=== PATIENT | female | born 1975 | race Caucasian/White ===

== ENCOUNTER 2020-02-01 07:16 | Outpatient (CLI) | payer BC, SELFPAY ==
--- NOTE | 2020-02-01 07:24 | MM_ITS ---
WS: [id number] SCREENING DIGITAL MAMMOGRAM WITH CAD HISTORY: SCREENING COMPARISON: 01/24/2017 Bilateral CC and MLO views submitted. Computer aided detection analyzed. Breast composition: There are scattered areas of fibroglandular density. No suspicious masses, microc alcifications or architectural distortion. MM/[place] [id number] IMPRESSION: BI-RADS: 1-Negative FOLLOW UP: 1 Year Follow-up
== END 2020-02-01 07:17 | disposition home or self-care (01) ==
LOC: RADSHAW 07:22
PROVIDERS: Family Provider Nurse Practitioner Family; PCP Nurse Practitioner Family; Visit Provider Nurse Practitioner Family
DX: Z12.31 Encounter for screening mammogram for malignant neoplasm of breast (principal)
CPT/HCPCS: 77067

== ENCOUNTER 2020-03-03 13:02 | Outpatient (CLI) | payer BC, SELFPAY ==
--- NOTE | 2020-03-03 13:12 | XR_ITS ---
WS: [id number] LUMBAR SPINE TECHNIQUE: 3 views of the lumbar spine CLINICAL INFORMATION: LUMBAR SPINE PAIN COMPARISON: None. FINDINGS: Five ugw-lwi-[id number] lumbar vertebral bodies. Mild lumbar curve convex left. Disc space heights and v ertebral body heights are well preserved. Minimal retrolisthesis L2 on L3 and L3 on L4. Disc space na rrowing worse at L3-4. Mild facet arthropathy L5-S1. No acute appearing compression fractures. Normal partially visualized pelvic bony structures. XR/XR lumbar spine 2-3V* [id number] IMPRESSION: 1. Mild lumbar curve convex left. 2. Slight retrolisthesis L2 on L3 and L3 on L4 with disc space narrowing worse at L3-4. 3. Mild facet arthropathy L5-S1.
--- NOTE | 2020-03-03 13:12 | XR_ITS ---
WS: [id number] CERVICAL SPINE TECHNIQUE: 3 views of the cervical spine CLINICAL INFORMATION: CERVICAL PAIN COMPARISON: None. FINDINGS: Straightening of the normal cervical lordosis. Mild spondylitic changes. Disc space narrowing worse a t C5-6. Slight retrolisthesis C5 on C6. Normal prevertebral soft tissues. Normal C1-2 articulation. M ild facet arthropathy. XR/XR cervical spine 3V* [id number] IMPRESSION: 1. Straightening of the normal cervical lordosis with mild spondylitic changes . 2. Disc space narrowing worse at C5-6 with anterior hypertrophic changes.
== END 2020-03-03 13:03 | disposition home or self-care (01) ==
LOC: RADWPI 13:07
PROVIDERS: Family Provider Nurse Practitioner Family; PCP Nurse Practitioner Family; Visit Provider Nurse Practitioner Family
DX: M54.5 Low back pain (principal); M54.2 Cervicalgia; M48.061 Spinal stenosis, lumbar region without neurogenic claudication; M47.817 Spondylosis without myelopathy or radiculopathy, lumbosacral region; M48.02 Spinal stenosis, cervical region
CPT/HCPCS: 72040; 72100

== ENCOUNTER 2020-03-10 15:22 | Outpatient (CLI) | payer BC, SELFPAY ==
--- NOTE | 2020-03-10 15:26 | USCV_ITS ---
Fatuma Jenkins Age: 44 Gender: F : 1975 Exam Date: 03/10/2020 15:44 Ordering Phys: Tiffanie Caba INTERVENTION SPECIALIST INTERVENTION SPECIALIST Technologist: Kmy Mcdaniel [place] [facility] [place]ication: DISCOLORATION OF SKIN OF TOE. HEEL PAIN. HISTORY: Heel pain. PROCEDURES: Examined bilaterally were the greater saphenous, common femoral, femoral, profunda, popliteal, posterior tibial veins, and peroneal trunk. FINDINGS: Normal 2-D Doppler and augmentation and compressibility throughout the lower extremity venous structures. Additional imaging through the proximal calf veins also reveals no thrombus. Limited evaluation of the greater saphenous vein is patent with no thrombus. CONCLUSIONS No DVT bilateral lower extremities. Dr. Pam Rees DO (Electronically Signed) Final Date: 10 March 2020 16:03 S
== END 2020-03-10 15:23 | disposition home or self-care (01) ==
LOC: RADWPI 15:24
PROVIDERS: Family Provider Nurse Practitioner Family; PCP Nurse Practitioner Family; Visit Provider Nurse Practitioner Family
DX: L81.9 Disorder of pigmentation, unspecified (principal); M79.671 Pain in right foot
CPT/HCPCS: 93970

== ENCOUNTER 2020-03-15 09:52 | Outpatient (RCR) | payer BC, SELFPAY | END 2020-03-31 23:59 | disposition home or self-care (01) | LOC: SPT 09:52 | PROVIDERS: Family Provider Nurse Practitioner Family; PCP Nurse Practitioner Family; Referring Provider Nurse Practitioner Family; Visit Provider Nurse Practitioner Family | DX: M54.2 Cervicalgia (principal); M54.5 Low back pain | CPT/HCPCS: 97110; 97162 ==

== ENCOUNTER 2020-03-24 14:20 | Outpatient (CLI) | payer BC, SELFPAY ==
--- NOTE | 2020-03-24 14:27 | USCV_ITS ---
Fatuma Jenkins Age: 44 Gender: F : 1975 Exam Date: 03/24/2020 14:20 Ordering Phys: Tiffanie Caba HAND DECORATOR HAND DECORATOR Technologist: Exam Location[place] [facility] [place] Indication: FEET OFTEN TURN PURPLE RIGHT LEFT Brachial 115.00 mmHg Brachial 113.00 mmHg Pressure (mmHg) Waveform Pressure (mmHg) Waveform 127.00 EXCEL SPECIALIST 131.00 118.00 DPA 130.00 1.03 Ankle/Brachial Index 1.14 0.87 Pre-Exercise Toe Pressure 0.76 FINDINGS Normal resting ABIs bilaterally ,1.03 and 1.14 Normal resting TBIs bilaterally, 0.87 and 0.76 CONCLUSIONS No significant arterial obstruction, based on above findings Dr Leonel Cotto MD FAC (Electronically Signed) Final Date: 24 March 2020 18:08 S
== END 2020-03-24 14:21 | disposition home or self-care (01) ==
LOC: RAD 14:23
PROVIDERS: Family Provider Nurse Practitioner Family; PCP Nurse Practitioner Family; Visit Provider Nurse Practitioner Family
DX: L81.9 Disorder of pigmentation, unspecified (principal)
CPT/HCPCS: 93922

== ENCOUNTER 2020-04-01 06:00 | Outpatient (RCR) | payer BC, SELFPAY | END 2020-04-14 23:00 | disposition home or self-care (01) | LOC: SPT 06:00 | PROVIDERS: PCP Nurse Practitioner Family; Referring Provider Nurse Practitioner Family; Visit Provider Nurse Practitioner Family | DX: M54.2 Cervicalgia (principal); M54.5 Low back pain | CPT/HCPCS: 97110 ==

== ENCOUNTER 2020-04-07 09:26 | Outpatient (CLI) | payer BC, SELFPAY ==
--- NOTE | 2020-04-07 09:32 | XR_ITS ---
WS: [id number] XR foot LT min 3V* [id number] REASON FOR EXAM: BILATERAL FOOT PAIN FINDINGS: Small calcaneal spur is seen. The remaining phalanges metatarsals and tarsals are all appear to be essentially normal. No fractures or other dyscrasias. XR/XR foot LT min 3V* [id number] IMPRESSION: Calcaneal spur.
--- NOTE | 2020-04-07 09:33 | XR_ITS ---
WS: [id number] XR foot RT min 3V* [id number] REASON FOR EXAM: BILATERAL FOOT PAIN FINDINGS: Right foot 3 views show a calcaneal spur evident. The phalanges, metatarsals, tarsals are normal. The remaining calcaneus was normal. XR/XR foot RT min 3V* [id number] IMPRESSION: Calcaneal spur.
== END 2020-04-07 09:27 | disposition home or self-care (01) ==
LOC: RAD 09:29
PROVIDERS: PCP Nurse Practitioner Family; Visit Provider Nurse Practitioner Family
DX: M77.31 Calcaneal spur, right foot; M77.32 Calcaneal spur, left foot
CPT/HCPCS: 73630

== ENCOUNTER → 2020-06-14 10:49 | Outpatient (BNVA) | payer BC, SELFPAY | PROVIDERS: PCP Nurse Practitioner Family; Visit Provider Obstetrics & Gynecology | DX: R87.610 Atypical squamous cells of undetermined significance on cytologic smear of cervix (ASC-US) (principal); R87.810 Cervical high risk human papillomavirus (HPV) DNA test positive | CPT/HCPCS: 88305 ==

== ENCOUNTER 2021-02-09 11:04 | Outpatient (CLI) | payer BC, SELFPAY ==
--- NOTE | 2021-02-09 11:16 | MM_ITS ---
WS: [id number] BILATERAL DIGITAL SCREENING MAMMOGRAPHY WITH CAD CLINICAL INFORMATION: SCREENING HISTORY: Screening mammogram. No current complaints. COMPARISON: February 01, 2020 TECHNIQUE: Bilateral CC and MLO views. FINDINGS: Scattered fibroglandular densities bilaterally. No suspicious focal mass, asymmetry, calcifications, or architectural distortion. No evidence of malignancy. MM/[place] [id number] IMPRESSION: BI-RADS: 1-Negative FOLLOW UP: 1 Year Follow-up Recommend return to annual screening mammography.
== END 2021-02-09 11:05 | disposition home or self-care (01) ==
LOC: RADSHAW 11:08
PROVIDERS: PCP Nurse Practitioner Family; Visit Provider Nurse Practitioner Family
DX: Z12.31 Encounter for screening mammogram for malignant neoplasm of breast (principal)
CPT/HCPCS: 77067

== ENCOUNTER → 2021-03-01 17:56 | Outpatient (BNVA) | payer BC, SELFPAY | PROVIDERS: PCP Nurse Practitioner Family; Visit Provider Nurse Practitioner | DX: M54.9 Dorsalgia, unspecified (principal); N39.0 Urinary tract infection, site not specified | CPT/HCPCS: 81000; 87086 ==

== ENCOUNTER → 2021-03-29 18:33 | Outpatient (BNVA) | payer BC, SELFPAY | PROVIDERS: PCP Nurse Practitioner Family; Visit Provider Nurse Practitioner | DX: J02.9 Acute pharyngitis, unspecified (principal); J01.90 Acute sinusitis, unspecified; B96.89 Other specified bacterial agents as the cause of diseases classified elsewhere | CPT/HCPCS: 87071; 87880 ==

== ENCOUNTER → 2021-06-07 14:46 | Outpatient (BNVA) | payer BC, SELFPAY | PROVIDERS: PCP Nurse Practitioner Family; Visit Provider Obstetrics & Gynecology | DX: R87.610 Atypical squamous cells of undetermined significance on cytologic smear of cervix (ASC-US) (principal); R87.810 Cervical high risk human papillomavirus (HPV) DNA test positive | CPT/HCPCS: 88175 ==

== ENCOUNTER → 2022-01-15 17:00 | Outpatient (BNVA) | payer BC, SELFPAY | PROVIDERS: PCP Nurse Practitioner Family; Visit Provider Nurse Practitioner | DX: N39.0 Urinary tract infection, site not specified (principal) | CPT/HCPCS: 81000 ==

== ENCOUNTER → 2022-09-15 15:21 | Outpatient (BNVA) | payer BC, SELFPAY | PROVIDERS: PCP Nurse Practitioner Family; Visit Provider Emergency Medicine | DX: N30.01 Acute cystitis with hematuria (principal) | CPT/HCPCS: 81000 ==

== ENCOUNTER → 2022-09-25 09:55 | Outpatient (BNVA) | payer BC, SELFPAY | PROVIDERS: PCP Nurse Practitioner Family; Visit Provider Family Medicine | DX: Z13.6 Encounter for screening for cardiovascular disorders (principal); K21.9 Gastro-esophageal reflux disease without esophagitis; Z01.419 Encounter for gynecological examination (general) (routine) without abnormal findings; Z12.31 Encounter for screening mammogram for malignant neoplasm of breast; Z87.440 Personal history of urinary (tract) infections | CPT/HCPCS: 80053; 80061; 81000; 84443; 85025; 87086; 87106; 87624 ==

== ENCOUNTER 2022-10-18 14:42 | Emergency (ER) | payer BC, SELFPAY ==
[2022-10-18 15:07] VITALS: BMI 26.6
[2022-10-18 15:15] VITALS: BP 118/78; PULSE 74; RESP 18; TEMP 36.6; O2SAT 98
--- NOTE | 2022-10-18 16:27 | CTR_ITS ---
PROCEDURE INFORMATION: Exam: CT Head Without Contrast Exam date and time: 10/18/2022 4:45 PM Age: 47 years old Clinical indication: Injury or trauma; Fall; Abrasion and blunt trauma (contusions or hematomas); Face and forehead; Additional info: Headache post fall/syncope TECHNIQUE: Imaging protocol: Computed tomography of the head without contrast. Sagittal and coronal reformatted images were created and reviewed. Radiation optimization: All CT scans at this facility use at least one of these dose optimization techniques: automated exposure control; mA and/or kV adjustment per patient size (includes targeted exams where dose is matched to clinical indication); or iterative reconstruction. COMPARISON: CR XR cervical spine 3V* [id number] 03/03/2020 1:21 PM RADIATION DOSE METRICS: Total DLP (mGy-cm): 1019.48 FINDINGS: Brain: No acute intracranial hemorrhage. No acute infarct. No intra-axial or extra-axial masses. Ding-white matter differentiation is preserved. No cerebral edema. No extra-axial fluid collections. No midline shift. No evidence for Chiari 1 malformation. Cerebral ventricles: No hydrocephalus. Paranasal sinuses: Visualized paranasal sinuses are clear. Mastoid air cells: Mastoid air cells are clear bilaterally. Orbital cavities: Globes and lenses, extraocular muscles, and optic nerves are intact bilaterally. No acute intraorbital abnormality. Nasal cavity: Mild left nasal septal deviation. Bones/joints: No acute fracture. Soft tissues: No acute abnormality of the extracranial soft tissues. CT/CT head wo con* [id number] IMPRESSION: 1. No acute abnormality of the brain. 2. Incidental/nonacute findings are listed in the report.
--- NOTE | 2022-10-18 16:47 | ED_ITS ---
Documented by User: WALLY Mendoza 10/18/22 23:55 HPI - Head Injury General: Chief complaint: Head Injury Stated complaint: Fall, head injury Time Seen by Provider: 10/18/22 15:27 History of Present Illness: Patient reports that she has a history of passing out. She reports that she has had this longstanding and will typically pass out and usually knows when she is going to do that. She reports that yesterday she was going to the bathroom and felt it coming on. She leaned forward to get cool water from the sink and the next thing she knew she was waking up on the ground. She reports that she did hit her head and bit her tongue. She reports that she had a knot on her head. She reports that she was very nauseated and vomiting last night. Ports that she was extremely dizzy and tired so she took a melatonin and tried to sleep it off. She reports that because she had the goose egg her sister demanded that she come to the ER to the. She reports that she has not had any vomiting or dizziness today. She does report that she has some swelling to the right side of her forehead and right side of her face. She rates her head pain is 6 on a 0-to-10 scale she has not taken anything for this. Associated symptoms: Deny nausea or vomiting Review of Systems Const: Denies: fever(s) or chills Eyes: Denies: change in vision, blurry vision, blind spots or photophobia Card: Denies: chest pain or palpitations Resp: Denies: dyspnea, productive cough or non-productive cough GI: Denies: abdominal pain, nausea or vomiting Neuro: Reports: headache(s); Denies: numbness in extremities, weakness in extremities, sensory changes, lack of coordination, difficulty walking or dizziness PFSH ED PFSH: Medical History Chronic neck pain Reports that she has a bulging disc in her neck that causes pain which is why she takes medication as needed. This is managed by her primary care provider GERD (gastroesophageal reflux disease) Controlled with medication-denies having had an endoscopy in the past. No pertinent past medical history Denies diabetes, asthma, hypertension, seizures, DVT/PE. PCP: [facility] Surgical History S/P dilation and curettage Performed by Dr. Norton in 1993 after a miscarriage S/P dilation of urethra Performed in [place] at age 4 S/P endometrial ablation 2007, performed by Dr. Norton Family History Grandfather Skin cancer maternal Heart disease paternal, of same Family/Other Diabetes maternal aunt, paternal aunt Stroke paternal aunt Colon cancer maternal uncle, diagnosed at age 60 Paternal cousin, diagnosed at age 40 Rectal cancer cousin, diagnosed in her late 30s Grandmother Diabetes maternal Heart disease paternal Family/Other Ovarian cancer maternal aunt, diagnosed in her late 50s, mets to uterus Father Hypertension Hyperlipidemia Denies family history of Breast cancer Uterine cancer Thyroid condition Social History Smoking and tobacco status: current every day smoker Alcohol intake: never Physical Exam Const: COMMON NORMALS: no acute distress, patient oriented x3 and alert Eye: COMMON NORMALS: Equal, round and reactive pupils present, EOMs intact bilaterally, conjunctivae normal, no scleral icterus and no papilledema CONJUNCTIVA: Yes conjunctivae normal PUPIL: Yes Equal, round and reactive pupils present DIRECT OPHTHALMOSCOPY: Yes no papilledema Neuro: COMMON NORMALS: patient oriented x3, CN's II-XII intact bilaterally, moves all extremities, no focal motor deficits and no sensory deficits noted SENSORIUM/ORIENTATION: Yes alert Course Vital Signs: Vital signs: Vital Signs Temperature 97.9 F 10/18/22 15:15 Pulse Rate 74 10/18/22 15:15 Respiratory Rate 18 10/18/22 15:15 Blood Pressure 118/78 10/18/22 15:15 Pulse Oximetry 98 10/18/22 15:15 Oxygen Delivery Me thod 10/18/22 15:15 MDM - Head Injury Medcial Decision Making Patient is in today after syncopal episode and hitting her head last night. She was having vomiting last night and has not today however she is very concerned because of a goose egg on her head and swelling on the right side of her face. Cranial nerves II through XII grossly intact on exam. We discussed head CT and the risk of radiation. I did talk with patient and her sister, at length. I advised that after head injury if patient is having nausea and vomiting she should come in right away. At this point, her symptoms are residing, I have less concern for an intracranial process. Patient and sister are insistent on a head CT at this time. Head CT does not show any acute abnormality of the brain. Discussed conservative management for concussion. Educated patient about brain rest technique for 72 hours. Advised patient of red flags for worsening symptoms and when she should return to the ER should she notice any. Follow-up with primary care provider as needed. Return to the ER for any new or worsening symptoms. Lab Data Radiology Impressions Head CT 10/18/22 16:27 IMPRESSION: 1. No acute abnormality of the brain. 2. Incidental/nonacute findings are listed in the report. Discharge Plan Discharge Patient Disposition: Home Clinical Impression: Closed head injury, Concussion with loss of consciousness Condition: Stable Prescriptions: No Action pantoprazole [Protonix] 40 mg tablet,delayed release (DR/EC) 40 mg PO DAILY Qty: 30 0RF fluconazole [Diflucan] 150 mg tablet 150 mg PO Q3D Qty: 2 0RF Rx Instructions: may repeat second dose 72 hrs after first dose. Discharge Orders: Discharge ED (Routine); Ordered 10/18/22 Ordered By: Cinthya Caba Referrals: Antoinette Barron DO [Primary Care Provider] - Discharge Diet: Usual diet Discharge Activity: Resume usual activity Patient Instructions: Concussion/Head Injury - Adult Activity Restrictions/Additional Instructions: I recommend brain rest for the next 72 hours. Brain rest involves no screen time, no fluorescent lighting, little interaction. Rest in bed in dark room except for getting up to eat or go to the bathroom. Use Tylenol Motrin as needed to help with headache. Follow-up with primary care provider as needed and to continue to monitor chronic episodes of syncope/passing out. Return to the ER for any new or worsening symptoms. Stand Alone Forms: Work/School Release Coding Level of Care Code ED Grain Cleaner And Transfer Operator for Chg Fwd Exam Expanded Problem Focused Documented by User: Aden Sumner DO 10/19/22 11:45 HPI - Head Injury General: Chief complaint: Head Injury Stated complaint: Fall, head injury Time Seen by Provider: 10/18/22 15:27 PFSH ED PFSH: Medical History Chronic neck pain Reports that she has a bulging disc in her neck that causes pain which is why she takes medication as needed. This is managed by her primary care provider GERD (gastroesophageal reflux disease) Controlled with medication-denies having had an endoscopy in the past. No pertinent past medical history Denies diabetes, asthma, hypertension, seizures, DVT/PE. PCP: [facility] Surgical History S/P dilation and curettage Performed by Dr. Norton in 1993 after a miscarriage S/P dilation of urethra Performed in [place] at age 4 S/P endometrial ablation 2007, performed by Dr. Norton Family History Grandfather Skin cancer maternal Heart disease paternal, of same Family/Other Diabetes maternal aunt, paternal aunt Stroke paternal aunt Colon cancer maternal uncle, diagnosed at age 60 Paternal cousin, diagnosed at age 40 Rectal cancer cousin, diagnosed in her late 30s Grandmother Diabetes maternal Heart disease paternal Family/Other Ovarian cancer maternal aunt, diagnosed in her late 50s, mets to uterus Father Hypertension Hyperlipidemia Denies family history of Breast cancer Uterine cancer Thyroid condition Social History Smoking and tobacco status: current every day smoker Alcohol intake: never Course Vital Signs: Vital signs: Vital Signs Temperature 97.9 F 10/18/22 15:15 Pulse Rate 74 10/18/22 15:15 Respiratory Rate 18 10/18/22 15:15 Blood Pressure 118/78 10/18/22 15:15 Pulse Oximetry 98 10/18/22 15:15 Oxygen Delivery Me thod 10/18/22 15:15 MDM - Head Injury Medcial Decision Making Patient is in today after syncopal episode and hitting her head last night. She was having vomiting last night and has not today however she is very concerned because of a goose egg on her head and swelling on the right side of her face. Cranial nerves II through XII grossly intact on exam. We discussed head CT and the risk of radiation. I did talk with patient and her sister, at length. I advised that after head injury if patient is having nausea and vomiting she should come in right away. At this point, her symptoms are residing, I have les s concern for an intracranial process. Patient and sister are insistent on a head CT at this time. Head CT does not show any acute abnormality of the brain. Discussed conservative management for concussion. Educated patient about brain rest technique for 72 hours. Advised patient of red flags for worsening symptoms and when she should return to the ER should she notice any. Follow-up with primary care provider as needed. Return to the ER for any new or worsening symptoms. Chart reviewed and patient discussed with midlevel. Agree with assessment and plan. Lab Data Radiology Impressions Head CT 10/18/22 16:27
[2022-10-18] MEDS: acetaminophen 500 mg Tablet 1000 MG PO (16:55)
== END 2022-10-18 17:50 | disposition home or self-care (01) ==
PROVIDERS: Emergency Provider Nurse Practitioner Family; PCP Family Medicine
DX: S09.8XXA Other specified injuries of head, initial encounter (principal); S06.0X9A Concussion with loss of consciousness of unspecified duration, initial encounter; F17.210 Nicotine dependence, cigarettes, uncomplicated; W18.39XA Other fall on same level, initial encounter
CPT/HCPCS: 70450; 99284

== ENCOUNTER 2022-10-24 09:37 | Outpatient (CLI) | payer BC, SELFPAY ==
--- NOTE | 2022-10-24 09:50 | MM_ITS ---
WS: [id number] BILATERAL SCREENING DIGITAL TOMOSYNTHESIS MAMMOGRAM WITH CAD HISTORY: screening mammogram COMPARISON: 02/09/2021, 02/01/2020 Bilateral CC and MLO views with tomosynthesis and synthetic mammography submitted. Computer aided det ection analyzed. Breast composition: There are scattered areas of fibroglandular density. No suspicious masses, microc alcifications or architectural distortion. MM/[place] [id number] IMPRESSION: BI-RADS: 1-Negative FOLLOW UP: 1 Year Follow-up
== END 2022-10-24 09:38 | disposition home or self-care (01) ==
LOC: RAD 09:38
PROVIDERS: PCP Family Medicine; Visit Provider Family Medicine
DX: Z12.31 Encounter for screening mammogram for malignant neoplasm of breast (principal)
CPT/HCPCS: 77063; 77067

== ENCOUNTER 2022-12-14 10:16 | Day surgery (SDC) | payer BC, SELFPAY ==
[2022-12-11 15:08] VITALS: BMI 26.2
[2022-12-14 10:30] VITALS: BP 141/87; PULSE 82; RESP 18; TEMP 36.3; O2SAT 100
[2022-12-14] MEDS: sodium chloride 0.9% 1,000 ML 30 ML IV (10:40)
--- NOTE | 2022-12-14 10:51 | ANES.PREANE2 ---
Pre-Anesthetic Assessment Height/Weight: Height 1.57 m Weight 64.864 kg Temp Pulse Resp BP Pulse Ox O2 Del Method 97.4 F L 82 18 141/87 100 12/14/22 10:30 12/14/22 10:30 12/14/22 10:30 12/14/22 10:30 12/14/22 10:30 12/14/22 10:30 Operation Date: 12/14/22 11:15 Proposed Procedures p EGD [id number],K21.9(Not Applicable) - Rudy Fuentes DO Familial anesthetic complications: None Was Beta Fili taken within 24 hours: N/A Was Clonidine taken within 24 hours: N/A Last intake: Intake Last Liquid Date 12/13/22 Last Liquid Time 22:00 Last Solid Date 12/13/22 Social No alcohol and No tobacco Exam alert, oriented x 3, clear to auscultation bilaterally and regular rate & rhythm Airway Submandibular: within normal limits Cervical ROM: Other (Decreased ROM) Mallampati: Class II Dentition: full History/ROS No significant history except as noted and No significant complaints Pulmonary None reported CV/HEM Palpitations None reported Hepatic None reported GI Gastroesophageal Reflux Disease Metabolic None reported Musc/skel None reported Neuropsych Anxiety, Neuropathy and Syncope (Many syncopal episodes her whole life. Last one in October) Anesthetic Plan ASA status: 2 Anesthesia: Anesthesia Evaluation, General and MAC Risk of > 500 ml blood loss (7ml/kg in children): No Medications/Allergies Home Medications Medication Instructions Recorded Confirmed Last Taken Type pantoprazole 40 mg tablet,delayed 40 mg PO DAILY #90 tabs 10/30/22 12/11/22 12/04/22 Rx release (Protonix) diazepam 5 mg tablet (Valium) 5 mg PO DAILY PRN anxiety #2 tabs 11/20/22 12/14/22 12/13/22 Rx pantoprazole 40 mg tablet,delayed 40 mg PO BID 6 weeks #84 tabs 11/20/22 12/14/22 Unknown Rx release (Protonix) Allergies Allergy/AdvReac Type Severity Reaction Status Date / Time No Known Allergies Allergy Verified 12/14/22 10:39 Current Medications Generic Name Dose Route Start Last Admin Trade Name Freq PRN Reason Stop Dose Admin Sodium Chloride 1,000 mls @ 30 mls/hr 12/14/22 10:15 12/14/22 10:40 Sodium Chloride 0.9% IV 12/15/22 10:14 30 mls/hr .Q24H RICO Administration PFSH Anesthesia Medical History Chronic neck pain Reports that she has a bulging disc in her neck that causes pain which is why she takes medication as needed. This is managed by her primary care provider GERD (gastroesophageal reflux disease) Controlled with medication-denies having had an endoscopy in the past. No pertinent past medical history Denies diabetes, asthma, hypertension, seizures, DVT/PE. PCP: [facility] Surgical History S/P dilation and curettage Performed by Dr. Norton in 1993 after a miscarriage S/P dilation of urethra Performed in [place] at age 4 S/P endometrial ablation 2007, performed by Dr. Norton Family History Grandfather Skin cancer maternal Heart disease paternal, of same Family/Other Diabetes maternal aunt, paternal aunt Stroke paternal aunt Colon cancer maternal uncle, diagnosed at age 60 Paternal cousin, diagnosed at age 40 Rectal cancer cousin, diagnosed in her late 30s Grandmother Diabetes maternal Heart disease paternal Family/Other Ovarian cancer maternal aunt, diagnosed in her late 50s, mets to uterus Father Hypertension Hyperlipidemia Denies family history of Breast cancer Uterine cancer Thyroid condition Social History Smoking and tobacco status: current every day smoker Alcohol intake: never Data Anesthesia Cardiac Studies: No Data to Display
[2022-12-14 11:14] LABS: OR HCG Qualitative Urine Negative (Negative)
--- NOTE | 2022-12-14 11:50 | W.PM.OPSUD ---
Surgery/Procedure H&P Update DATE OF PROCEDURE: December 14, 2022 DATE H&P PERFORMED: 11/20/22 PLANNED PROCEDURE: Operation Date: 12/14/22 11:15 Proposed Procedures p EGD [id number],K21.9(Not Applicable) - Rudy Fuentes DO
[2022-12-14 12:08] VITALS: BP 113/78; PULSE 76; RESP 16; TEMP 36.1; O2SAT 97
[2022-12-14 12:27] VITALS: BP 113/79; PULSE 62; RESP 18; O2SAT 100
--- NOTE | 2022-12-14 19:41 | ANE.PACU2 ---
Inpatient post-anesthesia follow up: Airway intact: Yes Vital signs: Temperature 97 F Pulse Rate 62 Respiratory Rate 18 Blood Pressure 113/79 Pulse Oximetry 100 Oxygen Delivery Me thod Room Air Oxygen Flow Rate Fraction of Inspir ed Oxygen Hydration adequate: Yes Nausea and vomiting: No Pain level: 1 Mental status: Baseline
== END 2022-12-14 12:42 | disposition home or self-care (01) ==
PROVIDERS: Anesthesiology; PCP Family Medicine; Visit Provider Surgery
PROC: 0DJ08ZZ Inspection of Upper Intestinal Tract, Via Natural or Artificial Opening Endoscopic (ICD-10-PCS; CPT 43235; principal; 2022-12-14 11:15)
DX: K21.9 Gastro-esophageal reflux disease without esophagitis (principal); K29.50 Unspecified chronic gastritis without bleeding; B96.81 Helicobacter pylori [H. pylori] as the cause of diseases classified elsewhere; F17.210 Nicotine dependence, cigarettes, uncomplicated
CPT/HCPCS: 43239; 81025; 84703; 88305; 88342; J2704; J7030

== ENCOUNTER → 2023-04-21 11:12 | Outpatient (BNVA) | payer BC, SELFPAY | PROVIDERS: PCP Family Medicine; Visit Provider Nurse Practitioner Family | DX: R39.9 Unspecified symptoms and signs involving the genitourinary system (principal) | CPT/HCPCS: 81000 ==

== ENCOUNTER → 2023-08-01 20:29 | Outpatient (BNVA) | payer BC, SELFPAY | PROVIDERS: PCP Family Medicine; Visit Provider Family Medicine | DX: B96.81 Helicobacter pylori [H. pylori] as the cause of diseases classified elsewhere (principal); K29.70 Gastritis, unspecified, without bleeding | CPT/HCPCS: 87338 ==

== ENCOUNTER → 2023-08-19 10:20 | Outpatient (BNVA) | payer BC, SELFPAY | PROVIDERS: PCP Family Medicine; Visit Provider Family Medicine | DX: K29.70 Gastritis, unspecified, without bleeding (principal); B96.81 Helicobacter pylori [H. pylori] as the cause of diseases classified elsewhere; R19.7 Diarrhea, unspecified | CPT/HCPCS: 86003 ==

== ENCOUNTER 2024-04-28 07:03 | Outpatient (CLI) | payer BC, SELFPAY ==
--- NOTE | 2024-04-28 07:15 | USCV_ITS ---
Fatuma Jenkins Age: 48 Gender: F : 1975 Exam Date: 04/28/2024 07:23 Ordering Phys: Tiffanie Caba CHICKEN HANDLER Technologist: TORREY [place] [facility] [place] Indication: SYNCOPE X 1 EPISODE BP: / HR: 137 Rhythm: Sinus Technical Quality: Adequate MEASUREMENTS (Male / Female) Normal Values 2D ECHO LV Diastolic Diameter PLAX 3.9 cm 4.2 - 5.9 / 3.9 - 5.3 cm IVS Diastolic Thickness 0.7 cm 0.6 - 1.0 / 0.6 - 0.9 cm IVS Systolic Thickness 1.1 cm LVPW Diastolic Thickness 1.0 cm 0.6 - 1.0 / 0.6 - 0.9 cm LVPW Systolic Thickness 1.1 cm LVOT Diameter 2.0 cm LV Ejection Fraction 2D Teich 65.1 % LV Ejection Fraction MOD 2C 61.0 % LV Ejection Fraction 2C AL 61.4 % LA Diameter 2.7 cm RA Systolic Volume 4C AL 11.8 ml RA Systolic Volume 4C MOD 11.5 ml LA Sys Volume AL 19.9 cm cubed LA Sys Volume Index AL 11.5 cm cubed/m squared Aorta at Sinotubular Diameter 2.6 cm IVC Diameter 1.4 cm M-MODE LA Ao Ratio MM 0.9 AV Cusp Separation MM 1.8 cm DOPPLER AV Peak Velocity 117.0 cm/s LVOT Peak Velocity 95.0 cm/s AV Area Cont Eq vti 4.4 cm squared AV Area Cont Eq pk 2.6 cm squared MV Area PHT 3.7 cm squared Mitral E to A Ratio 1.0 TR Peak Velocity 174.0 cm/s TR Peak Gradient 12.1 mmHg TR Mean Velocity 135.0 cm/s TR Mean Gradient 7.9 mmHg TR Velocity Time Integral 59.4 cm TV Peak E Velocity 65.0 cm/s FINDINGS Left Ventricle Left ventricle is normal size. LV systolic function is normal with EF 55 to 60%. No regional wall motion abnormalities are seen. Right Ventricle Normal in size and function Right Atrium Normal in size Left Atrium Normal in size Mitral Valve Structurally normal mitral valve. Aortic Valve Structurally normal aortic valve. No significant stenosis or regurgitation. Tricuspid Valve Trace tricuspid regurgitation. Insufficient TR jet to calculate RVSP. Pulmonic Valve Not well visualized Pericardium Normal Aorta Normal in size IVC Appears to be normal CONCLUSIONS LV systolic function is normal with EF of 55-60% Trace tricuspid regurgitation. No comparison studies are available. Musa Fitzgerald MD (Electronically Signed) Final Date: 11 May 2024 10:57 S
== END 2024-04-28 07:04 | disposition home or self-care (01) ==
LOC: RAD 07:03
PROVIDERS: PCP Family Medicine; Visit Provider Nurse Practitioner Family
DX: I07.1 Rheumatic tricuspid insufficiency (principal); R55 Syncope and collapse
CPT/HCPCS: 93306

== ENCOUNTER 2025-02-22 08:01 | Outpatient (CLI) | payer BC, SELFPAY ==
--- NOTE | 2025-02-22 08:02 | MM_ITS ---
WS: [id number] BILATERAL SCREENING DIGITAL TOMOSYNTHESIS MAMMOGRAM WITH CAD HISTORY: SCREENING COMPARISON: 10/24/2022, 02/09/2021 Bilateral CC and MLO views with tomosynthesis and synthetic mammography submitted. Computer aided detection analyzed. Breast composition: There are scattered areas of fibroglandular density. No suspicious masses, microcalcifications or architectural distortion. MM/MM scr BI tomosynthesis [id number] IMPRESSION: BI-RADS: 2 - Benign. FOLLOW UP: 1 Year Follow-up
== END 2025-02-22 08:02 | disposition home or self-care (01) ==
PROVIDERS: PCP Nurse Practitioner Family; Visit Provider Nurse Practitioner Family
DX: Z12.31 Encounter for screening mammogram for malignant neoplasm of breast (principal); R92.323 Mammographic fibroglandular density, bilateral breasts
CPT/HCPCS: 77063; 77067